=== PATIENT | male | born 1960 | race Caucasian/White ===

== ENCOUNTER 2022-09-21 00:42 | Outpatient (RCR) | payer MEDICARE, SELFPAY ==
[2022-08-29] MEDS: Normal Saline Flush 10 ML SYR IVP (08:10)
[2022-08-29 08:27] LABS: Abs Immature Grans 0.01 10^3/uL (0.0-0.06); Absolute Basophil Count 0.01 10^3/uL (0.0-0.2); Absolute Eosinophil Count 0.13 10^3/uL (0.0-0.7); Absolute Lymphocyte Count 1.46 10^3/uL (1.2-3.4); Absolute Monocyte Count 0.61 10^3/uL (0.1-0.8); Absolute Neutrophil Count 4.25 10^3/uL (1.2-6.7); Basophils % 0.2; HCT 36.8 % (40.0-50.0); Immature Grans % 0.2; Lymphocytes % 22.6; MCH 29.3 pg (27.0-33.0); MCHC 32.6 % (32.0-36.0); MCV 90 fL (80-95); MPV 10.7 fL (8.0-11.0); Monocytes % 9.4; Neutrophils % 65.6; Platelet Count 272 10^3/uL (130-400); RDW 13.7 % (11.8-14.1); RDW-SD 45.3 fL; WBC 6.47 10^3/uL (4.4-10.8)
[2022-08-29 08:43] LABS: ALT 35 U/L (16-63); AST 21 U/L (15-37); Albumin 3.3 g/dL (3.4-5.0); Alkaline Phosphatase 125 U/L (46-116); BUN 27 mg/dL (7-18); Bilirubin, Total 0.7 mg/dL (0.2-1.0); CREATININE 1.1 mg/dL (0.70-1.30); Calcium 8.5 mg/dL (8.5-10.1); Chloride 105 mmol/L (98-107); Estimated GFR 74.96 (mL/min/1.73m2); Glucose 117 mg/dL (74-106); Potassium 3.9 mmol/L (3.5-5.1); Sodium 141 mmol/L (136-145); Total Protein 7.5 g/dL (6.4-8.2)
[2022-08-31 09:59] LABS: CA 19-9 189 U/mL (<35)
[2022-09-14] MEDS: Normal Saline Flush 10 ML SYR IVP (08:45)
[2022-09-14 09:04] LABS: Absolute Basophil Count 0.01 10^3/uL (0.0-0.2); Absolute Eosinophil Count 0.27 10^3/uL (0.0-0.7); Absolute Lymphocyte Count 1.14 10^3/uL (1.2-3.4); Absolute Monocyte Count 0.45 10^3/uL (0.1-0.8); Absolute Neutrophil Count 0.56 10^3/uL (1.2-6.7); Basophils % 0.4; Eosinophils % 11.1; HCT 29.9 % (40.0-50.0); HGB 10.2 g/dL (13.5-17.5); Lymphocytes % 46.9; MCH 29.6 pg (27.0-33.0); MCHC 34.1 % (32.0-36.0); MCV 87 fL (80-95); MPV 10.2 fL (8.0-11.0); Monocytes % 18.5; Neutrophils % 23.1; Platelet Count 223 10^3/uL (130-400); RBC 3.45 10^6/uL (4.36-5.78); RDW 13.6 % (11.8-14.1); RDW-SD 41.5 fL; WBC 2.43 10^3/uL (4.4-10.8)
[2022-09-14 09:18] LABS: ALT 30 U/L (16-63); AST 20 U/L (15-37); Alkaline Phosphatase 105 U/L (46-116); Anion Gap 6.7 mmol/L (3-11); BUN 19 mg/dL (7-18); Bilirubin, Total 0.7 mg/dL (0.2-1.0); CO2 30.3 mmol/L (21.0-32.0); CREATININE 1.1 mg/dL (0.70-1.30); Calcium 8.4 mg/dL (8.5-10.1); Chloride 108 mmol/L (98-107); Estimated GFR 74.96 (mL/min/1.73m2); Glucose 129 mg/dL (74-106); Sodium 145 mmol/L (136-145); Total Protein 6.6 g/dL (6.4-8.2)
[2022-09-14 09:24] LABS: Potassium 2.9 mmol/L (3.5-5.1)
[2022-09-14 09:42] LABS: Diff Comment Agrees w/ Instrument; RBC Morphology Normal
[2022-09-17 15:42] LABS: CA 19-9 181 U/mL (<35)
[2022-09-21] MEDS: Normal Saline Flush 10 ML SYR IVP (08:07)
[2022-09-21 08:29] LABS: Abs Immature Grans 0.04 10^3/uL (0.0-0.06); Absolute Basophil Count 0.01 10^3/uL (0.0-0.2); Absolute Eosinophil Count 0.06 10^3/uL (0.0-0.7); Absolute Lymphocyte Count 1.57 10^3/uL (1.2-3.4); Absolute Monocyte Count 0.64 10^3/uL (0.1-0.8); Absolute Neutrophil Count 2.72 10^3/uL (1.2-6.7); Basophils % 0.2; Eosinophils % 1.2; HCT 32.1 % (40.0-50.0); HGB 10.5 g/dL (13.5-17.5); Immature Grans % 0.8; Lymphocytes % 31.2; MCH 29.1 pg (27.0-33.0); MCHC 32.7 % (32.0-36.0); MCV 89 fL (80-95); MPV 9.8 fL (8.0-11.0); Monocytes % 12.7; Neutrophils % 53.9; Platelet Count 278 10^3/uL (130-400); RBC 3.61 10^6/uL (4.36-5.78); RDW 13.6 % (11.8-14.1); RDW-SD 44.4 fL; WBC 5.04 10^3/uL (4.4-10.8)
[2022-09-21 08:49] LABS: ALT 31 U/L (16-63); AST 23 U/L (15-37); Alkaline Phosphatase 115 U/L (46-116); Anion Gap 6.5 mmol/L (3-11); BUN 23 mg/dL (7-18); Bilirubin, Total 0.4 mg/dL (0.2-1.0); CO2 30.5 mmol/L (21.0-32.0); CREATININE 0.9 mg/dL (0.70-1.30); Calcium 8.4 mg/dL (8.5-10.1); Chloride 104 mmol/L (98-107); Estimated GFR 95.37 (mL/min/1.73m2); Glucose 94 mg/dL (74-106); Potassium 4.1 mmol/L (3.5-5.1); Sodium 141 mmol/L (136-145); Total Protein 7.1 g/dL (6.4-8.2)
[2022-09-24 14:02] LABS: CA 19-9 246 U/mL (<35)
== END 2022-09-21 23:59 | disposition home or self-care (01) ==
LOC: INF 00:42
PROVIDERS: PCP Internal Medicine; Visit Provider Internal Medicine Hematology & Oncology
DX: C24.1 Malignant neoplasm of ampulla of Vater (principal); Z45.2 Encounter for adjustment and management of vascular access device
CPT/HCPCS: 36591; 80053; 82533; 82378; 85025; 86301

== ENCOUNTER 2022-10-19 01:03 | Outpatient (RCR) | payer MEDICARE, SELFPAY ==
[2022-10-05] MEDS: Normal Saline Flush 10 ML SYR IVP (08:29)
[2022-10-05 08:41] LABS: Abs Immature Grans 0.02 10^3/uL (0.0-0.06); Absolute Basophil Count 0.02 10^3/uL (0.0-0.2); Absolute Eosinophil Count 0.15 10^3/uL (0.0-0.7); Absolute Lymphocyte Count 1.44 10^3/uL (1.2-3.4); Absolute Monocyte Count 0.62 10^3/uL (0.1-0.8); Absolute Neutrophil Count 3.84 10^3/uL (1.2-6.7); Basophils % 0.3; Eosinophils % 2.5; HCT 34.1 % (40.0-50.0); HGB 11.3 g/dL (13.5-17.5); Immature Grans % 0.3; Lymphocytes % 23.6; MCH 29.7 pg (27.0-33.0); MCHC 33.1 % (32.0-36.0); MCV 90 fL (80-95); MPV 10.6 fL (8.0-11.0); Monocytes % 10.2; Neutrophils % 63.1; Platelet Count 271 10^3/uL (130-400); RBC 3.81 10^6/uL (4.36-5.78); RDW 14.6 % (11.8-14.1); RDW-SD 47.8 fL; WBC 6.09 10^3/uL (4.4-10.8)
[2022-10-05 09:05] LABS: ALT 43 U/L (16-63); AST 30 U/L (15-37); Albumin 3.4 g/dL (3.4-5.0); Alkaline Phosphatase 127 U/L (46-116); Anion Gap 8.9 mmol/L (3-11); BUN 23 mg/dL (7-18); Bilirubin, Total 0.7 mg/dL (0.2-1.0); CO2 27.1 mmol/L (21.0-32.0); CREATININE 1.2 mg/dL (0.70-1.30); Calcium 8.6 mg/dL (8.5-10.1); Chloride 107 mmol/L (98-107); Estimated GFR 67.53 (mL/min/1.73m2); Glucose 135 mg/dL (74-106); Sodium 143 mmol/L (136-145); Total Protein 7.3 g/dL (6.4-8.2)
[2022-10-08 12:54] LABS: CA 19-9 213 U/mL (<35)
[2022-10-19] MEDS: Normal Saline Flush 10 ML SYR IVP (08:45)
[2022-10-19 09:15] LABS: Abs Immature Grans 0.01 10^3/uL (0.0-0.06); Absolute Basophil Count 0.02 10^3/uL (0.0-0.2); Absolute Eosinophil Count 0.19 10^3/uL (0.0-0.7); Absolute Lymphocyte Count 1.39 10^3/uL (1.2-3.4); Absolute Monocyte Count 0.48 10^3/uL (0.1-0.8); Absolute Neutrophil Count 2.97 10^3/uL (1.2-6.7); Basophils % 0.4; Eosinophils % 3.8; HCT 29.8 % (40.0-50.0); HGB 9.9 g/dL (13.5-17.5); Immature Grans % 0.2; Lymphocytes % 27.5; MCH 29.6 pg (27.0-33.0); MCHC 33.2 % (32.0-36.0); MCV 89 fL (80-95); MPV 10.4 fL (8.0-11.0); Monocytes % 9.5; Neutrophils % 58.6; Platelet Count 182 10^3/uL (130-400); RBC 3.34 10^6/uL (4.36-5.78); RDW 14.5 % (11.8-14.1); RDW-SD 46.1 fL; WBC 5.06 10^3/uL (4.4-10.8)
[2022-10-19 09:24] LABS: ALT 37 U/L (16-63); AST 24 U/L (15-37); Albumin 3.2 g/dL (3.4-5.0); Alkaline Phosphatase 106 U/L (46-116); Anion Gap 7.1 mmol/L (3-11); BUN 19 mg/dL (7-18); Bilirubin, Total 0.4 mg/dL (0.2-1.0); CO2 27.9 mmol/L (21.0-32.0); CREATININE 1.1 mg/dL (0.70-1.30); Calcium 8.2 mg/dL (8.5-10.1); Chloride 107 mmol/L (98-107); Estimated GFR 74.96 (mL/min/1.73m2); Glucose 85 mg/dL (74-106); Potassium 4.2 mmol/L (3.5-5.1); Sodium 142 mmol/L (136-145); Total Protein 6.9 g/dL (6.4-8.2)
[2022-10-22 17:29] LABS: CA 19-9 173 U/mL (<35)
== END 2022-10-22 23:59 | disposition home or self-care (01) ==
LOC: INF 01:03
PROVIDERS: PCP Internal Medicine; Visit Provider Internal Medicine Hematology & Oncology
DX: C24.1 Malignant neoplasm of ampulla of Vater (principal); Z45.2 Encounter for adjustment and management of vascular access device
CPT/HCPCS: 36591; 80053; 85025; 86301

== ENCOUNTER 2022-11-20 08:15 | Outpatient (RCR) | payer MEDICARE, SELFPAY ==
[2022-11-01] MEDS: Normal Saline Flush 10 ML SYR IVP (08:05)
[2022-11-01 08:58] LABS: ALT 29 U/L (16-63); AST 23 U/L (15-37); Alkaline Phosphatase 122 U/L (46-116); BUN 15 mg/dL (7-18); Bilirubin, Total 0.5 mg/dL (0.2-1.0); CREATININE 1.2 mg/dL (0.70-1.30); Calcium 8.1 mg/dL (8.5-10.1); Chloride 108 mmol/L (98-107); Estimated GFR 67.53 (mL/min/1.73m2); Glucose 104 mg/dL (74-106); Sodium 144 mmol/L (136-145); Total Protein 6.6 g/dL (6.4-8.2)
[2022-11-01 09:02] LABS: Absolute Basophil Count 0.01 10^3/uL (0.0-0.2); Absolute Eosinophil Count 0.14 10^3/uL (0.0-0.7); Absolute Lymphocyte Count 1.25 10^3/uL (1.2-3.4); Absolute Monocyte Count 0.56 10^3/uL (0.1-0.8); Absolute Neutrophil Count 2.48 10^3/uL (1.2-6.7); Basophils % 0.2; Eosinophils % 3.1; HCT 28.7 % (40.0-50.0); HGB 9.6 g/dL (13.5-17.5); Lymphocytes % 28.1; MCH 29.6 pg (27.0-33.0); MCHC 33.4 % (32.0-36.0); MCV 89 fL (80-95); MPV 10.1 fL (8.0-11.0); Monocytes % 12.6; Neutrophils % 55.8; Platelet Count 161 10^3/uL (130-400); RBC 3.24 10^6/uL (4.36-5.78); RDW-SD 47.3 fL; WBC 4.45 10^3/uL (4.4-10.8)
[2022-11-01 09:03] LABS: Abs Immature Grans 0.01 10^3/uL (0.0-0.06); Immature Grans % 0.2
[2022-11-01 09:32] LABS: Reticulocyte 2.2 % (0.5-2.4)
[2022-11-01 09:49] LABS: Iron 68 ug/dL (65-175); Total Iron Binding Capacity 296 ug/dL (250-450); Transferrin Sat 23 % (20-55)
[2022-11-01 10:17] LABS: Ferritin 90 ng/mL (26-388); Vitamin B12 357 pg/mL (193-986)
[2022-11-01 10:19] LABS: Folate > 20.0 ng/mL (8.6-20.0)
[2022-11-02 09:54] LABS: CA 19-9 128 U/mL (<35)
[2022-11-16 08:21] LABS: Abs Immature Grans 0.01 10^3/uL (0.0-0.06); Absolute Basophil Count 0.02 10^3/uL (0.0-0.2); Absolute Eosinophil Count 0.08 10^3/uL (0.0-0.7); Absolute Lymphocyte Count 1.74 10^3/uL (1.2-3.4); Absolute Monocyte Count 1.04 10^3/uL (0.1-0.8); Basophils % 0.4; Eosinophils % 1.7; HCT 28.1 % (40.0-50.0); HGB 9.5 g/dL (13.5-17.5); Immature Grans % 0.2; Lymphocytes % 37.1; MCH 30.4 pg (27.0-33.0); MCHC 33.8 % (32.0-36.0); MCV 90 fL (80-95); MPV 10.7 fL (8.0-11.0); Monocytes % 22.2; Neutrophils % 38.4; Platelet Count 187 10^3/uL (130-400); RBC 3.12 10^6/uL (4.36-5.78); RDW 16.5 % (11.8-14.1); RDW-SD 52.7 fL; WBC 4.69 10^3/uL (4.4-10.8)
[2022-11-16] MEDS: Normal Saline Flush 10 ML SYR IVP (08:24)
[2022-11-16 08:44] LABS: ALT 26 U/L (16-63); AST 25 U/L (15-37); Albumin 2.8 g/dL (3.4-5.0); Alkaline Phosphatase 134 U/L (46-116); Anion Gap 5.6 mmol/L (3-11); BUN 11 mg/dL (7-18); Bilirubin, Total 0.7 mg/dL (0.2-1.0); CO2 29.4 mmol/L (21.0-32.0); Calcium 7.9 mg/dL (8.5-10.1); Chloride 105 mmol/L (98-107); Estimated GFR 84.05 (mL/min/1.73m2); Glucose 82 mg/dL (74-106); Potassium 3.6 mmol/L (3.5-5.1); Sodium 140 mmol/L (136-145); Total Protein 6.5 g/dL (6.4-8.2)
[2022-11-19 12:07] LABS: CA 19-9 95 U/mL (<35)
[2022-11-20] MEDS: Normal Saline Flush 10 ML SYR IVP (08:36)
[2022-11-20 09:09] LABS: Abs Immature Grans 0.01 10^3/uL (0.0-0.06); Absolute Basophil Count 0.01 10^3/uL (0.0-0.2); Absolute Eosinophil Count 0.07 10^3/uL (0.0-0.7); Absolute Lymphocyte Count 1.36 10^3/uL (1.2-3.4); Absolute Monocyte Count 0.84 10^3/uL (0.1-0.8); Basophils % 0.2; Eosinophils % 1.7; HCT 29.4 % (40.0-50.0); HGB 9.7 g/dL (13.5-17.5); Immature Grans % 0.2; Lymphocytes % 33.7; MCV 91 fL (80-95); MPV 10.6 fL (8.0-11.0); Monocytes % 20.8; Neutrophils % 43.4; Platelet Count 258 10^3/uL (130-400); RBC 3.23 10^6/uL (4.36-5.78); RDW-SD 53.9 fL; WBC 4.03 10^3/uL (4.4-10.8)
[2022-11-20 09:11] LABS: Absolute Neutrophil Count 1.75 10^3/uL (1.2-6.7)
[2022-11-20 09:29] LABS: ALT 35 U/L (16-63); AST 34 U/L (15-37); Albumin 3.1 g/dL (3.4-5.0); Alkaline Phosphatase 165 U/L (46-116); Anion Gap 7.1 mmol/L (3-11); BUN 11 mg/dL (7-18); Bilirubin, Total 0.6 mg/dL (0.2-1.0); CO2 29.9 mmol/L (21.0-32.0); Calcium 8.5 mg/dL (8.5-10.1); Chloride 103 mmol/L (98-107); Estimated GFR 84.05 (mL/min/1.73m2); Glucose 92 mg/dL (74-106); Sodium 140 mmol/L (136-145); Total Protein 7.2 g/dL (6.4-8.2)
[2022-11-21 09:20] LABS: CA 19-9 99 U/mL (<35)
== END 2022-11-22 23:59 | disposition home or self-care (01) ==
LOC: INF 08:15
PROVIDERS: PCP Internal Medicine; Visit Provider Internal Medicine Hematology & Oncology
DX: C24.1 Malignant neoplasm of ampulla of Vater (principal); D50.9 Iron deficiency anemia, unspecified; Z45.2 Encounter for adjustment and management of vascular access device
CPT/HCPCS: 36591; 80053; 82607; 82728; 82746; 83540; 83550; 85025; 85045; 86301

== ENCOUNTER 2022-12-21 02:52 | Outpatient (RCR) | payer MEDICARE, SELFPAY ==
[2022-12-07] MEDS: Normal Saline Flush 10 ML SYR IVP (08:02)
[2022-12-07 08:38] LABS: Abs Immature Grans 0.01 10^3/uL (0.0-0.06); Absolute Basophil Count 0.01 10^3/uL (0.0-0.2); Absolute Eosinophil Count 0.09 10^3/uL (0.0-0.7); Absolute Lymphocyte Count 1.03 10^3/uL (1.2-3.4); Absolute Monocyte Count 0.67 10^3/uL (0.1-0.8); Absolute Neutrophil Count 0.99 10^3/uL (1.2-6.7); Basophils % 0.4; Eosinophils % 3.2; HCT 27.2 % (40.0-50.0); HGB 8.9 g/dL (13.5-17.5); Immature Grans % 0.4; Lymphocytes % 36.8; MCH 29.9 pg (27.0-33.0); MCHC 32.7 % (32.0-36.0); MCV 91 fL (80-95); MPV 11.1 fL (8.0-11.0); Monocytes % 23.9; Neutrophils % 35.3; Platelet Count 243 10^3/uL (130-400); RBC 2.98 10^6/uL (4.36-5.78); RDW 15.3 % (11.8-14.1); RDW-SD 50.1 fL
[2022-12-07 09:01] LABS: ALT 32 U/L (16-63); AST 33 U/L (15-37); Albumin 2.9 g/dL (3.4-5.0); Alkaline Phosphatase 208 U/L (46-116); Anion Gap 5.4 mmol/L (3-11); BUN 12 mg/dL (7-18); Bilirubin, Total 0.4 mg/dL (0.2-1.0); CO2 29.6 mmol/L (21.0-32.0); Calcium 8.8 mg/dL (8.5-10.1); Chloride 106 mmol/L (98-107); Estimated GFR 84.05 (mL/min/1.73m2); Glucose 92 mg/dL (74-106); Potassium 3.9 mmol/L (3.5-5.1); Sodium 141 mmol/L (136-145); Total Protein 7.2 g/dL (6.4-8.2)
[2022-12-10 11:39] LABS: CA 19-9 56 U/mL (<35)
[2022-12-11] MEDS: Normal Saline Flush 10 ML SYR IVP (07:44)
[2022-12-11 08:18] LABS: ALT 29 U/L (16-63); AST 33 U/L (15-37); Alkaline Phosphatase 200 U/L (46-116); Anion Gap 7.1 mmol/L (3-11); BUN 12 mg/dL (7-18); Bilirubin, Total 0.3 mg/dL (0.2-1.0); CO2 27.9 mmol/L (21.0-32.0); CREATININE 1.1 mg/dL (0.70-1.30); Chloride 105 mmol/L (98-107); Estimated GFR 74.96 (mL/min/1.73m2); Glucose 138 mg/dL (74-106); Potassium 3.7 mmol/L (3.5-5.1); Sodium 140 mmol/L (136-145); Total Protein 7.3 g/dL (6.4-8.2)
[2022-12-11 08:30] LABS: Abs Immature Grans 0.05 10^3/uL (0.0-0.06); Absolute Basophil Count 0.01 10^3/uL (0.0-0.2); Absolute Lymphocyte Count 1.89 10^3/uL (1.2-3.4); Absolute Monocyte Count 0.75 10^3/uL (0.1-0.8); Absolute Neutrophil Count 1.38 10^3/uL (1.2-6.7); Basophils % 0.2; Eosinophils % 2.4; HCT 29.1 % (40.0-50.0); HGB 9.5 g/dL (13.5-17.5); Immature Grans % 1.2; Lymphocytes % 45.2; MCH 30.1 pg (27.0-33.0); MCHC 32.6 % (32.0-36.0); MCV 92 fL (80-95); MPV 10.6 fL (8.0-11.0); Monocytes % 17.9; Neutrophils % 33.1; Platelet Count 356 10^3/uL (130-400); RBC 3.16 10^6/uL (4.36-5.78); RDW 15.3 % (11.8-14.1); RDW-SD 51.1 fL; WBC 4.18 10^3/uL (4.4-10.8)
== END 2022-12-22 23:59 | disposition home or self-care (01) ==
LOC: INF 02:52
PROVIDERS: PCP Internal Medicine; Visit Provider Internal Medicine Hematology & Oncology
DX: C24.1 Malignant neoplasm of ampulla of Vater (principal); Z45.2 Encounter for adjustment and management of vascular access device
CPT/HCPCS: 36591; 80053; 85025; 86301

== ENCOUNTER 2023-02-06 08:28 | Outpatient (RCR) | payer MEDICARE, SELFPAY ==
[2023-02-06] MEDS: Normal Saline Flush 10 ML SYR IVP (08:37)
[2023-02-06 09:01] LABS: Abs Immature Grans 0.04 10^3/uL (0.0-0.06); Absolute Basophil Count 0.02 10^3/uL (0.0-0.2); Absolute Eosinophil Count 0.07 10^3/uL (0.0-0.7); Absolute Lymphocyte Count 0.85 10^3/uL (1.2-3.4); Absolute Monocyte Count 0.86 10^3/uL (0.1-0.8); Absolute Neutrophil Count 4.15 10^3/uL (1.2-6.7); Basophils % 0.3; Eosinophils % 1.2; HCT 33.1 % (40.0-50.0); HGB 11.1 g/dL (13.5-17.5); Immature Grans % 0.7; Lymphocytes % 14.2; MCH 31.2 pg (27.0-33.0); MCHC 33.5 % (32.0-36.0); MCV 93 fL (80-95); MPV 10.7 fL (8.0-11.0); Monocytes % 14.4; Neutrophils % 69.2; Platelet Count 191 10^3/uL (130-400); RBC 3.56 10^6/uL (4.36-5.78); RDW 14.2 % (11.8-14.1); RDW-SD 48.3 fL; WBC 5.99 10^3/uL (4.4-10.8)
[2023-02-06 09:20] LABS: ALT 87 U/L (16-63); AST 57 U/L (15-37); Albumin 3.1 g/dL (3.4-5.0); Alkaline Phosphatase 254 U/L (46-116); Anion Gap 6.9 mmol/L (3-11); BUN 14 mg/dL (7-18); Bilirubin, Total 0.9 mg/dL (0.2-1.0); CO2 28.1 mmol/L (21.0-32.0); CREATININE 1.1 mg/dL (0.70-1.30); Chloride 105 mmol/L (98-107); Estimated GFR 74.96 (mL/min/1.73m2); Glucose 105 mg/dL (74-106); Potassium 3.7 mmol/L (3.5-5.1); Sodium 140 mmol/L (136-145); Total Protein 7.5 g/dL (6.4-8.2)
[2023-02-07 11:47] LABS: CA 19-9 72 U/mL (<35)
== END 2023-02-21 23:59 | disposition home or self-care (01) ==
LOC: INF 08:28
PROVIDERS: PCP Internal Medicine; Visit Provider Internal Medicine Hematology & Oncology
DX: C24.1 Malignant neoplasm of ampulla of Vater (principal); Z45.2 Encounter for adjustment and management of vascular access device
CPT/HCPCS: 36591; 80053; 85025; 86301

== ENCOUNTER 2023-09-13 01:08 | Outpatient (RCR) | payer MEDICARE, SELFPAY ==
[2023-09-13] MEDS: Normal Saline Flush 10 ML SYR IVP (10:16)
[2023-09-13 10:31] LABS: Abs Immature Grans 0.02 10^3/uL (0.0-0.06); Absolute Basophil Count 0.03 10^3/uL (0.0-0.2); Absolute Eosinophil Count 0.14 10^3/uL (0.0-0.7); Absolute Lymphocyte Count 1.44 10^3/uL (1.2-3.4); Absolute Monocyte Count 0.58 10^3/uL (0.1-0.8); Absolute Neutrophil Count 5.19 10^3/uL (1.2-6.7); Basophils % 0.4 %; Eosinophils % 1.9 %; HCT 32.5 % (40.0-50.0); HGB 11.1 g/dL (13.5-17.5); Immature Grans % 0.3 %; Lymphocytes % 19.5 %; MCH 31.4 pg (27.0-33.0); MCHC 34.2 % (32.0-36.0); MCV 92 fL (80-95); MPV 10.6 fL (8.0-11.0); Monocytes % 7.8 %; Neutrophils % 70.1 %; Platelet Count 193 10^3/uL (130-400); RBC 3.54 10^6/uL (4.36-5.78); RDW 13.2 % (11.8-14.1); RDW-SD 45.1 fL
[2023-09-13 10:46] LABS: ALT 47 U/L (16-63); AST 37 U/L (15-37); Albumin 3.3 g/dL (3.4-5.0); Alkaline Phosphatase 153 U/L (46-116); Anion Gap 8.1 mmol/L (3-11); BUN 23 mg/dL (7-18); Bilirubin, Total 1.02 mg/dL (0.2-1.0); CO2 24.9 mmol/L (21.0-32.0); CREATININE 1.1 mg/dL (0.70-1.30); Calcium 8.3 mg/dL (8.5-10.1); Chloride 110 mmol/L (98-107); Glucose 81 mg/dL (74-106); Potassium 4.3 mmol/L (3.5-5.1); Sodium 143 mmol/L (136-145); Total Protein 7.5 g/dL (6.4-8.2)
[2023-09-13 11:46] LABS: TSH 3.67 uIU/Ml (0.36-3.74)
[2023-09-13 15:03] LABS: FREE T4 0.87 ng/dL (0.76-1.46)
[2023-09-13 21:56] LABS: CA 19-9 970 U/mL (<35)
== END 2023-09-22 23:59 | disposition home or self-care (01) ==
LOC: INF 01:08
PROVIDERS: Nurse Practitioner Family; PCP Internal Medicine; Visit Provider Internal Medicine Hematology & Oncology
DX: C24.1 Malignant neoplasm of ampulla of Vater (principal); R53.83 Other fatigue; Z45.2 Encounter for adjustment and management of vascular access device
CPT/HCPCS: 36591; 80053; 82310; 84439; 84443; 85025; 86301

== ENCOUNTER 2023-11-08 01:21 | Outpatient (RCR) | payer MEDICARE, SELFPAY ==
[2023-11-01] MEDS: Normal Saline Flush 10 ML SYR IVP (08:16)
[2023-11-01 09:31] LABS: Abs Immature Grans 0.01 10^3/uL (0.0-0.06); Absolute Basophil Count 0.03 10^3/uL (0.0-0.2); Absolute Eosinophil Count 0.36 10^3/uL (0.0-0.7); Absolute Lymphocyte Count 1.08 10^3/uL (1.2-3.4); Absolute Monocyte Count 0.52 10^3/uL (0.1-0.8); Basophils % 0.5 %; HCT 31.6 % (40.0-50.0); HGB 10.6 g/dL (13.5-17.5); Immature Grans % 0.2 %; MCH 31.6 pg (27.0-33.0); MCHC 33.5 % (32.0-36.0); MCV 94 fL (80-95); MPV 11.8 fL (8.0-11.0); Monocytes % 8.7 %; Neutrophils % 66.6 %; Platelet Count 194 10^3/uL (130-400); RBC 3.35 10^6/uL (4.36-5.78); RDW 12.7 % (11.8-14.1)
[2023-11-01 10:04] LABS: ALT 42 U/L (16-63); AST 41 U/L (15-37); Albumin 3.1 g/dL (3.4-5.0); Alkaline Phosphatase 152 U/L (46-116); Anion Gap 5.8 mmol/L (3-11); BUN 11 mg/dL (7-18); Bilirubin, Total 0.99 mg/dL (0.2-1.0); CO2 28.2 mmol/L (21.0-32.0); Calcium 8.3 mg/dL (8.5-10.1); Chloride 108 mmol/L (98-107); Estimated GFR 83.52 (mL/min/1.73m2); Glucose 99 mg/dL (74-106); Potassium 3.8 mmol/L (3.5-5.1); Sodium 142 mmol/L (136-145); Total Protein 7.3 g/dL (6.4-8.2)
[2023-11-01 11:29] LABS: Magnesium 1.9 mg/dL (1.8-2.4)
[2023-11-04 12:06] LABS: CA 19-9 1977 U/mL (<35)
[2023-11-08] MEDS: Normal Saline Flush 10 ML SYR IVP (10:00)
[2023-11-08 10:21] LABS: Absolute Basophil Count 0.02 10^3/uL (0.0-0.2); Absolute Eosinophil Count 0.09 10^3/uL (0.0-0.7); Absolute Lymphocyte Count 0.94 10^3/uL (1.2-3.4); Absolute Monocyte Count 0.13 10^3/uL (0.1-0.8); Absolute Neutrophil Count 1.56 10^3/uL (1.2-6.7); Basophils % 0.7 %; Eosinophils % 3.3 %; HCT 30.5 % (40.0-50.0); HGB 10.3 g/dL (13.5-17.5); Lymphocytes % 34.3 %; MCH 31.4 pg (27.0-33.0); MCHC 33.8 % (32.0-36.0); MCV 93 fL (80-95); MPV 10.4 fL (8.0-11.0); Monocytes % 4.7 %; Platelet Count 132 10^3/uL (130-400); RBC 3.28 10^6/uL (4.36-5.78); RDW 11.8 % (11.8-14.1); RDW-SD 40.3 fL; WBC 2.74 10^3/uL (4.4-10.8)
[2023-11-08 10:46] LABS: ALT 50 U/L (16-63); AST 33 U/L (15-37); Alkaline Phosphatase 157 U/L (46-116); Anion Gap 6.5 mmol/L (3-11); BUN 18 mg/dL (7-18); Bilirubin, Total 0.63 mg/dL (0.2-1.0); CO2 31.5 mmol/L (21.0-32.0); CREATININE 1.2 mg/dL (0.70-1.30); Calcium 8.7 mg/dL (8.5-10.1); Chloride 103 mmol/L (98-107); Estimated GFR 67.11 (mL/min/1.73m2); Glucose 110 mg/dL (74-106); Potassium 3.9 mmol/L (3.5-5.1); Sodium 141 mmol/L (136-145); Total Protein 7.4 g/dL (6.4-8.2)
[2023-11-08 11:57] LABS: Magnesium 1.9 mg/dL (1.8-2.4)
[2023-11-09 00:54] LABS: CA 19-9 2741 U/mL (<35)
== END 2023-11-23 23:59 | disposition home or self-care (01) ==
LOC: INF 01:21
PROVIDERS: Nurse Practitioner Family; PCP Internal Medicine; Visit Provider Internal Medicine Hematology & Oncology
DX: C24.1 Malignant neoplasm of ampulla of Vater (principal); Z45.2 Encounter for adjustment and management of vascular access device
CPT/HCPCS: 36591; 80053; 83735; 85025; 86301

== ENCOUNTER 2023-12-13 07:05 | Outpatient (RCR) | payer MEDICARE, SELFPAY ==
[2023-12-13 07:58] LABS: Abs Immature Grans 0.01 10^3/uL (0.0-0.06); Absolute Basophil Count 0.04 10^3/uL (0.0-0.2); Absolute Eosinophil Count 0.02 10^3/uL (0.0-0.7); Absolute Lymphocyte Count 1.08 10^3/uL (1.2-3.4); Absolute Monocyte Count 0.23 10^3/uL (0.1-0.8); Absolute Neutrophil Count 2.03 10^3/uL (1.2-6.7); Basophils % 1.2 %; Eosinophils % 0.6 %; HCT 25.2 % (40.0-50.0); HGB 8.6 g/dL (13.5-17.5); Immature Grans % 0.3 %; Lymphocytes % 31.7 %; MCH 31.9 pg (27.0-33.0); MCHC 34.1 % (32.0-36.0); MCV 93 fL (80-95); MPV 10.3 fL (8.0-11.0); Monocytes % 6.7 %; Neutrophils % 59.5 %; Platelet Count 145 10^3/uL (130-400); RDW 13.2 % (11.8-14.1); RDW-SD 44.4 fL; WBC 3.41 10^3/uL (4.4-10.8)
[2023-12-13 08:11] LABS: Diff Comment Diff Reviewed; Hypochromasia 1+
[2023-12-13 08:22] LABS: ALT 29 U/L (16-63); AST 27 U/L (15-37); Albumin 2.7 g/dL (3.4-5.0); Alkaline Phosphatase 118 U/L (46-116); BUN 14 mg/dL (7-18); Bilirubin, Total 0.42 mg/dL (0.2-1.0); CREATININE 1.2 mg/dL (0.70-1.30); Calcium 8.6 mg/dL (8.5-10.1); Chloride 103 mmol/L (98-107); Estimated GFR 67.11 (mL/min/1.73m2); Glucose 123 mg/dL (74-106); Magnesium 1.6 mg/dL (1.8-2.4); Potassium 3.8 mmol/L (3.5-5.1); Sodium 140 mmol/L (136-145); Total Protein 7.2 g/dL (6.4-8.2)
[2023-12-13 10:54] LABS: Reticulocyte 0.2 % (0.5-2.4)
[2023-12-13 10:58] LABS: Iron 47 ug/dL (65-175); Total Iron Binding Capacity 290 ug/dL (250-450); Transferrin Sat 16 % (20-55)
[2023-12-13 11:24] LABS: Ferritin 428 ng/mL (26-388); Vitamin B12 1434 pg/mL (193-986)
[2023-12-13 11:31] LABS: Folate > 20.0 ng/mL (8.6-20.0)
[2023-12-13 21:43] LABS: CA 19-9 1790 U/mL (<35)
== END 2023-12-23 23:59 | disposition home or self-care (01) ==
LOC: INF 07:05
PROVIDERS: PCP Internal Medicine; Visit Provider Internal Medicine Hematology & Oncology
DX: C24.1 Malignant neoplasm of ampulla of Vater (principal); D64.9 Anemia, unspecified
CPT/HCPCS: 36591; 80053; 82607; 82728; 82746; 83540; 83550; 83735; 85025; 85045; 86301

== ENCOUNTER 2024-05-14 08:37 | Outpatient (RCR) | payer MEDICARE, SELFPAY ==
[2024-05-14 09:15] LABS: Abs Immature Grans 0.01 10^3/uL (0.0-0.06); Absolute Basophil Count 0.01 10^3/uL (0.0-0.2); Absolute Lymphocyte Count 1.53 10^3/uL (1.2-3.4); Absolute Monocyte Count 0.73 10^3/uL (0.1-0.8); Absolute Neutrophil Count 2.24 10^3/uL (1.2-6.7); Basophils % 0.2 %; Eosinophils % 2.2 %; HCT 29.9 % (40.0-50.0); Immature Grans % 0.2 %; Lymphocytes % 33.1 %; MCH 32.4 pg (27.0-33.0); MCHC 33.4 % (32.0-36.0); MCV 97 fL (80-95); MPV 10.3 fL (8.0-11.0); Monocytes % 15.8 %; Neutrophils % 48.5 %; Platelet Count 213 10^3/uL (130-400); RBC 3.09 10^6/uL (4.36-5.78); RDW 15.9 % (11.8-14.1); RDW-SD 56.1 fL; WBC 4.62 10^3/uL (4.4-10.8)
[2024-05-14] MEDS: Normal Saline Flush 10 ML SYR IVP (09:15)
[2024-05-14 09:53] LABS: ALT 30 U/L (16-63); AST 28 U/L (15-37); Albumin 3.3 g/dL (3.4-5.0); Alkaline Phosphatase 109 U/L (46-116); Anion Gap 5.5 mmol/L (3-11); BUN 30 mg/dL (7-18); CO2 29.5 mmol/L (21.0-32.0); CREATININE 1.6 mg/dL (0.70-1.30); Calcium 8.8 mg/dL (8.5-10.1); Chloride 107 mmol/L (98-107); Estimated GFR 47.23 (mL/min/1.73m2); Glucose 99 mg/dL (74-106); Potassium 4.8 mmol/L (3.5-5.1); Sodium 142 mmol/L (136-145); Total Protein 7.5 g/dL (6.4-8.2)
[2024-05-15 11:37] LABS: CA 19-9 1897 U/mL (<35)
== END 2024-05-22 23:59 | disposition home or self-care (01) ==
LOC: INF 08:37
PROVIDERS: PCP Internal Medicine; Visit Provider Internal Medicine Hematology & Oncology
DX: C24.1 Malignant neoplasm of ampulla of Vater (principal)
CPT/HCPCS: 36591; 80053; 83735; 85025; 86301

== ENCOUNTER 2024-06-18 02:25 | Outpatient (RCR) | payer MEDICARE, SELFPAY ==
[2024-05-28 10:26] LABS: Abs Immature Grans 0.01 10^3/uL (0.0-0.06); Absolute Basophil Count 0.02 10^3/uL (0.0-0.2); Absolute Eosinophil Count 0.11 10^3/uL (0.0-0.7); Absolute Lymphocyte Count 1.58 10^3/uL (1.2-3.4); Absolute Monocyte Count 0.59 10^3/uL (0.1-0.8); Basophils % 0.4 %; Eosinophils % 2.1 %; HCT 28.6 % (40.0-50.0); HGB 9.8 g/dL (13.5-17.5); Immature Grans % 0.2 %; Lymphocytes % 29.8 %; MCH 32.8 pg (27.0-33.0); MCHC 34.3 % (32.0-36.0); MCV 96 fL (80-95); MPV 11.7 fL (8.0-11.0); Monocytes % 11.1 %; Neutrophils % 56.4 %; Platelet Count 153 10^3/uL (130-400); RBC 2.99 10^6/uL (4.36-5.78); RDW 15.7 % (11.8-14.1); RDW-SD 55.1 fL; WBC 5.31 10^3/uL (4.4-10.8)
[2024-05-28] MEDS: Normal Saline Flush 10 ML SYR IVP (10:28)
[2024-05-28 10:42] LABS: ALT 40 U/L (16-63); AST 33 U/L (15-37); Albumin 3.2 g/dL (3.4-5.0); Alkaline Phosphatase 120 U/L (46-116); Anion Gap 5.6 mmol/L (3-11); BUN 26 mg/dL (7-18); Bilirubin, Total 0.58 mg/dL (0.2-1.0); CO2 30.4 mmol/L (21.0-32.0); CREATININE 1.3 mg/dL (0.70-1.30); Calcium 8.8 mg/dL (8.5-10.1); Chloride 109 mmol/L (98-107); Estimated GFR 60.59 (mL/min/1.73m2); Glucose 94 mg/dL (74-106); Sodium 145 mmol/L (136-145); Total Protein 7.6 g/dL (6.4-8.2)
[2024-05-29 12:25] LABS: CA 19-9 2496 U/mL (<35)
[2024-06-18 09:45] LABS: Abs Immature Grans 0.02 10^3/uL (0.0-0.06); Absolute Basophil Count 0.01 10^3/uL (0.0-0.2); Absolute Eosinophil Count 0.09 10^3/uL (0.0-0.7); Absolute Lymphocyte Count 1.37 10^3/uL (1.2-3.4); Absolute Monocyte Count 0.62 10^3/uL (0.1-0.8); Absolute Neutrophil Count 1.02 10^3/uL (1.2-6.7); Basophils % 0.3 %; Eosinophils % 2.9 %; HCT 26.8 % (40.0-50.0); Immature Grans % 0.6 %; Lymphocytes % 43.8 %; MCHC 33.6 % (32.0-36.0); MCV 98 fL (80-95); MPV 11.4 fL (8.0-11.0); Monocytes % 19.8 %; Neutrophils % 32.6 %; Platelet Count 158 10^3/uL (130-400); RBC 2.73 10^6/uL (4.36-5.78); RDW 15.7 % (11.8-14.1); RDW-SD 55.8 fL; WBC 3.13 10^3/uL (4.4-10.8)
[2024-06-18 10:05] LABS: ALT 27 U/L (16-63); AST 26 U/L (15-37); Albumin 3.2 g/dL (3.4-5.0); Alkaline Phosphatase 156 U/L (46-116); Anion Gap 6.2 mmol/L (3-11); BUN 16 mg/dL (7-18); Bilirubin, Total 0.3 mg/dL (0.2-1.0); CO2 29.8 mmol/L (21.0-32.0); CREATININE 1.3 mg/dL (0.70-1.30); Calcium 8.7 mg/dL (8.5-10.1); Chloride 108 mmol/L (98-107); Estimated GFR 60.59 (mL/min/1.73m2); Glucose 94 mg/dL (74-106); Magnesium 1.9 mg/dL; Potassium 4.4 mmol/L (3.5-5.1); Sodium 144 mmol/L (136-145); Total Protein 7.3 g/dL (6.4-8.2)
[2024-06-18] MEDS: Normal Saline Flush 10 ML SYR IVP (10:05)
[2024-06-19 13:41] LABS: CA 19-9 2896 U/mL (<35)
== END 2024-06-22 23:59 | disposition home or self-care (01) ==
LOC: INF 02:25
PROVIDERS: PCP Internal Medicine; Visit Provider Internal Medicine Hematology & Oncology
DX: C24.1 Malignant neoplasm of ampulla of Vater (principal)
CPT/HCPCS: 36591; 80053; 83735; 85025; 86301

== ENCOUNTER 2024-07-03 00:13 | Outpatient (CLI) | payer MEDICARE, SELFPAY ==
--- NOTE | 2024-07-03 | DI.CT_ITS ---
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 TECHNIQUE: Imaging Protocol: Axial computed tomography images with coronal and sagittal reformatted images were created and reviewed. Computer aided detection (CAD) was utilized. CONTRAST MATERIAL: Intravenous: Omnipaque 350 Contrast volume:100 ml Oral: yes / COMPARISON: CT CT CHEST/ABD/PEL W from 04/23/2024 FINDINGS: CHEST: Pulmonary parenchyma: No consolidation. Stable somewhat triangular density in the right middle lobe w hich could represent scarring. Interval increase in size of previously noted nodule at the periphery of the right lower lobe now measuring 5 millimeters compared to 3 on the prior exam. Tracheobronchial tree: No bronchiectasis. No mucous plugging.No bronchial wall thickening. Pleura: No effusion or pneumothorax. Mediastinum: Within normal limits. Pulmonary arteries: No visible emboli. Cardiovascular: Normal heart size. Coronary artery calcifications. No pericardial effusion. Thoraci c aorta non-dilated. Bones: Unremarkable for age. No lytic or blastic lesions.No compression fractures. Soft tissues: Port over right upper chest. ABDOMEN and PELVIS: Liver: Normal hepatic steatosis. Lesion in posterior right lobe of the liver has increased in size, measuring 2.7 cm and is suspicious for a metastatic lesion. No additional liver lesions are identifi ed. Gallbladder and biliary tract: Biliary air. Status post cholecystectomy. Multiple surgical clips. Bilioenterostomy again noted. No biliary dilatation.. Pancreas: Resection of pancreatic head. The tail is somewhat atrophic. Stent in place. No ductal di latation. No recurrence mass. Spleen: Normal. Kidneys: Normal size, contour and axis. No radiodense stones. No obstructive uropathy. Stable right renal cyst. No suspicious masses seen. Adrenal glands: No masses seen. Aorta: Abdominal portion non-dilated. Lymph nodes: Within normal limits. Soft tissues: Midline surgical scar. Small focal hernia. Bowel is nonobstructed. Bladder: Unremarkable. Bowel: No obstruction or bowel wall thickening. Sigmoid diverticulosis. Peritoneal cavity: Multiple small mesenteric lymph nodes are now visible, increasing in prominence fr om the previous exam. There is a more focal density to the right of midline at the level of the right iliac crest in the mesentery measuring in roughly 15 millimeters, also new. No ascites. No focal c ollection. No free air. Bones: Degenerative changes in the spine. No compression fractures. No visible lytic or blastic lesio ns. In L5 spondylolysis and mild L5-S1 spondylolisthesis is again noted. Reproductive organs: Unremarkable for age. IMPRESSION: Chest: Stable right middle lobe opacity. Increase in size of right posterior lower lobe nodule now measuring 5 millimeters. Abdomen pelvis: Increasing size of liver metastasis. Small mesenteric lymph nodes now visible as well as new mesenteric areas of nodularity. RADIATION DOSE DELIVERED: 860.04mGy.cm Total DLP DATA REPOSITORY: All CT scans at this facility are submitted to the National Radiology Data Registry (NRDR) Dose Index Registry (DIR) with the [employer] (ACR). RADIATION OPTIMIZATION: All CT scans at this facility use at least one of these dose optimization te chniques: automated exposure control; mA and/or kV adjustment per patient size (includes targeted exa ms where dose is matched to clinical indication); or iterative reconstruction.
[2024-07-03] MEDS: Barium Sulfate 2% W/V-Berry Smoothie 450 ML BTL PO ×2 (09:32→09:35)
[2024-07-03] MEDS: Normal Saline - Diluent 50 ML VIAL IJ (09:50)
[2024-07-03] MEDS: Omnipaque 350 MG/ML 100 ML BTL IJ (09:51)
== END 2024-07-03 00:33 ==
LOC: DI 00:13
PROVIDERS: PCP Internal Medicine; Visit Provider Internal Medicine Hematology & Oncology
DX: C24.1 Malignant neoplasm of ampulla of Vater (principal)
CPT/HCPCS: 74177; 71260; J3490

== ENCOUNTER 2024-07-09 00:53 | Outpatient (RCR) | payer MEDICARE, SELFPAY ==
[2024-07-02] MEDS: Normal Saline Flush 10 ML SYR IVP (07:21)
[2024-07-02 08:01] LABS: Abs Immature Grans 0.01 10^3/uL (0.0-0.06); Absolute Basophil Count 0.01 10^3/uL (0.0-0.2); Absolute Eosinophil Count 0.07 10^3/uL (0.0-0.7); Absolute Lymphocyte Count 1.57 10^3/uL (1.2-3.4); Absolute Monocyte Count 0.47 10^3/uL (0.1-0.8); Absolute Neutrophil Count 3.14 10^3/uL (1.2-6.7); Basophils % 0.2 %; Eosinophils % 1.3 %; HCT 26.5 % (40.0-50.0); HGB 9.2 g/dL (13.5-17.5); Immature Grans % 0.2 %; Lymphocytes % 29.8 %; MCH 34.1 pg (27.0-33.0); MCHC 34.7 % (32.0-36.0); MCV 98 fL (80-95); Monocytes % 8.9 %; Neutrophils % 59.6 %; Platelet Count 158 10^3/uL (130-400); RDW 14.9 % (11.8-14.1); RDW-SD 53.7 fL; WBC 5.27 10^3/uL (4.4-10.8)
[2024-07-02 08:08] LABS: ALT 25 U/L (16-63); AST 24 U/L (15-37); Alkaline Phosphatase 137 U/L (46-116); Anion Gap 6.8 mmol/L (3-11); BUN 25 mg/dL (7-18); Bilirubin, Total 0.3 mg/dL (0.2-1.0); CO2 28.2 mmol/L (21.0-32.0); CREATININE 1.4 mg/dL (0.70-1.30); Calcium 8.7 mg/dL (8.5-10.1); Chloride 110 mmol/L (98-107); Estimated GFR 55.43 (mL/min/1.73m2); Glucose 115 mg/dL (74-106); Magnesium 1.8 mg/dL; Potassium 3.8 mmol/L (3.5-5.1); Sodium 145 mmol/L (136-145); Total Protein 6.9 g/dL (6.4-8.2)
[2024-07-03] MEDS: Normal Saline Flush 10 ML SYR IVP (10:10)
[2024-07-03 10:28] LABS: CA 19-9 3916 U/mL (<35)
== END 2024-07-22 23:59 | disposition home or self-care (01) ==
LOC: INF 00:53
PROVIDERS: PCP Internal Medicine; Visit Provider Internal Medicine Hematology & Oncology
DX: C24.1 Malignant neoplasm of ampulla of Vater (principal); Z45.2 Encounter for adjustment and management of vascular access device
CPT/HCPCS: 36591; 80053; 96523; 83735; 85025; 86301

== ENCOUNTER 2024-08-26 00:56 | Outpatient (CLI) | payer MEDICARE, SELFPAY ==
--- NOTE | 2024-08-26 | DI.CT_ITS ---
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 Lung Computer Aided Detection (CAD) was utilized. CONTRAST MATERIAL: Intravenous: Omnipaque 350 contrast volume:100 mL Oral: Yes COMPARISON: CT CT CHEST/ABD/PEL W from 04/23/[address] CHEST/ABD/PEL W from 07/03/2024 FINDINGS: CHEST: Tracheobronchial tree: Patent where visualized. No evidence of bronchiectasis. Pulmonary parenchyma: There is a calcified granuloma again seen in the left lower lobe. There is a n ew 4 mm nodule in the left lower lobe (series 10, image 95). There is a peripheral nodule in the lef t upper lobe. The triangular opacity in the right middle lobe is stable. No new infiltrates are see n. Visualized thyroid gland: Unremarkable. Mediastinum and Ilana: No dominant adenopathy or fluid collection. The esophagus is unremarkable. Pleura: No effusion or pneumothorax. Heart: The heart is not dilated. Coronary artery calcification is present. No pericardial effusion. Pulmonary arteries: No pulmonary emboli are identified. Aorta: Thoracic aorta non-dilated. There is no evidence of dissection. Atherosclerotic calcification is present. Lymph nodes: Within normal limits. Tubes, Catheters, and Lines: There is a right-sided port in place. Soft tissues: Unremarkable. Bones:Within normal limits for the patient's age. No aggressive osseous lesions are seen. ABDOMEN: Liver: Normal density. There hypodensity seen in the liver consistent with metastatic disease. The l argest lesion is seen in the right lobe of the liver and measures 3.1 x 2.8 cm. This compares to 2.7 x 2.1 cm on the prior examination dated 07/03/2024. There is also been an increase in size and numbe r of the lesions compared to the prior examination. Portal, Superior Mesenteric, and Splenic Veins: Unremarkable. Gallbladder and Biliary Tract: Status post cholecystectomy. No significant biliary ductal dilatation . There is mild pneumobilia. Pancreas: There is a stent again seen in the pancreas. There again seen postsurgical changes related to the pancreatic neoplasm. The visualized body and tail of the pancreas are unchanged and unremark able. Spleen: Normal. Adrenals: No masses seen. Kidneys: Normal size, contour and axis. No radiodense stones or obstructive uropathy. There is a simp le cyst on the right kidney. No follow-up is recommended. Abdominal Aorta: Abdominal portion non-dilated. Atherosclerotic calcification is present. Bowel: There is diverticulosis of the colon without evidence of acute diverticulitis. There is no ev idence of bowel obstruction or bowel wall thickening. There is been resection of the 3rd and 4th por tions of the duodenum with a gastroenteric anastomosis. The appendix appears have been removed. The re are surgical clips in the base of the cecum. Peritoneal Cavity: There are mildly prominent lymph nodes seen in the mesentery. No free air. Lymph Nodes: Mildly prominent lymph nodes are seen in the mesentery. Bones: Within normal limits for the patient's age. No aggressive osseous lesions are present. There is L5 spondylolysis and grade 1 spondylolisthesis of L5 on S1. Soft Tissues: There is soft tissue thickening in the midline supraumbilical region measuring 4.6 harvey sverse by 2.8 AP by 10 cm craniocaudad. This has developed since the prior examination. There is qu estion of infiltration/involvement of underlying adjacent small bowel. PELVIS: Bladder: The urinary bladder is incompletely distended but grossly unremarkable. Reproductive Organs: The prostate gland appears mildly enlarged. Lymph Nodes: Within normal limits. Bones: Within normal limits. IMPRESSION: 1. Increase in number and size of the hepatic metastases since 07/03/2024. 2. Increased thickening of the anterior abdominal wall in the supraumbilical region. Differential co nsiderations include infection/inflammation. There does appear to be of decreased attenuation and fi nding such as an abscess, seroma or hematoma should be considered. Metastatic disease should also be considered. 3. Two new noncalcified pulmonary nodules are seen. 4. Stable right middle lobe opacity. RADIATION DOSE DELIVERED: 781.13mGy.cm Total DLP DATA REPOSITORY: All CT scans at this facility are submitted to the National Radiology Data Registry (NRDR) Dose Index Registry (DIR) with the [employer] (ACR). RADIATION OPTIMIZATION: All CT scans at this facility use at least one of these dose optimization te chniques: automated exposure control; mA and/or kV adjustment per patient size (includes targeted exa ms where dose is matched to clinical indication); or iterative reconstruction.
[2024-08-26] MEDS: Barium Sulfate 2% W/V-Berry Smoothie 450 ML BTL PO ×2 (08:46→08:47)
[2024-08-26] MEDS: Omnipaque 350 MG/ML 100 ML BTL IJ (10:26)
== END 2024-08-26 01:16 ==
LOC: DI 00:56
PROVIDERS: PCP Internal Medicine; Visit Provider Internal Medicine Hematology & Oncology
DX: C24.1 Malignant neoplasm of ampulla of Vater (principal); R91.8 Other nonspecific abnormal finding of lung field
CPT/HCPCS: 74177; 71260; J3490

== ENCOUNTER 2024-09-03 01:36 | Outpatient (RCR) | payer MEDICARE, SELFPAY ==
[2024-08-26] MEDS: Normal Saline Flush 10 ML SYR IVP (08:24)
== END 2024-09-21 23:59 | disposition home or self-care (01) ==
LOC: INF 01:36
PROVIDERS: PCP Internal Medicine; Visit Provider Internal Medicine Hematology & Oncology
DX: C24.1 Malignant neoplasm of ampulla of Vater (principal)
CPT/HCPCS: 96523

== ENCOUNTER 2024-11-16 03:48 | Outpatient (RCR) | payer MEDICARE, SELFPAY ==
[2024-11-16] MEDS: Normal Saline Flush 10 ML SYR IVP (11:49)
[2024-11-16 12:10] LABS: Abs Immature Grans 0.01 10^3/uL (0.0-0.06); HCT 24.3 % (40.0-50.0); HGB 8.3 g/dL (13.5-17.5); Immature Grans % 0.2 %; MCH 35.8 pg (27.0-33.0); MCHC 34.2 % (32.0-36.0); MCV 105 fL (80-95); MPV 11.1 fL (8.0-11.0); Platelet Count 117 10^3/uL (130-400); RBC 2.32 10^6/uL (4.36-5.78); RDW 15.1 % (11.8-14.1); RDW-SD 56.9 fL; WBC 5.37 10^3/uL (4.4-10.8)
[2024-11-16 12:35] LABS: ALT 26 U/L (16-63); AST 27 U/L (15-37); Albumin 3.1 g/dL (3.4-5.0); Alkaline Phosphatase 123 U/L (46-116); Anion Gap 7.8 mmol/L (3-11); BUN 27 mg/dL (7-18); Bilirubin, Total 0.8 mg/dL (0.2-1.0); CO2 27.2 mmol/L (21.0-32.0); Calcium 8.7 mg/dL (8.5-10.1); Chloride 107 mmol/L (98-107); Estimated GFR 66.70 (mL/min/1.73m2); Glucose 100 mg/dL (74-106); Magnesium 1.8 mg/dL (1.8-2.4); Potassium 4.2 mmol/L (3.5-5.1); Sodium 142 mmol/L (136-145); Total Protein 7.1 g/dL (6.4-8.2)
[2024-11-18 12:56] LABS: CA 19-9 4476 U/mL (<35)
== END 2024-11-22 23:59 | disposition home or self-care (01) ==
LOC: INF 03:48
PROVIDERS: PCP Internal Medicine; Visit Provider Internal Medicine Hematology & Oncology
DX: C24.1 Malignant neoplasm of ampulla of Vater (principal)
CPT/HCPCS: 36591; 80053; 83735; 85025; 86301

== ENCOUNTER 2024-11-16 08:50 | Outpatient (CLI) | payer MEDICARE, SELFPAY ==
--- NOTE | 2024-11-16 | DI.CT_ITS ---
Exam(s) CT CHEST/ABD/PEL W EXAM: CT CHEST/ABD/PEL W CLINICAL HISTORY: Ampullary carcinoma, C24.1, on chemotherapy, restaging. TECHNIQUE: Imaging Protocol: Axial computed tomography images with coronal and sagittal reformatted images were created and reviewed CONTRAST MATERIAL: Intravenous: Omnipaque 350 Contrast volume:98 mL Oral: Yes. Oral contrast was also administered for bowel opacification. COMPARISON: CT CT CHEST/ABD/PEL W from 04/23/[address] CHEST/ABD/PEL W from 07/03/[address] CHEST/ABD/PEL W from 08/26/2024 FINDINGS: CHEST: LUNGS: There are no intraluminal filling defects in the pulmonary arterial tree to suggest acute pulmonary emboli in this patient who has a Port-A-Cath in place.. There are benign-appearing increased markings in the lateral aspect of the right upper lobe at its junction with the right middle lobe. There are no metastatic appearing lung nodules. Tiny calcified granulomas noted in the left lower lobe. There are no significant focal findings in trachea and mainstem bronchi. No bronchiectasis. No pleural effusions. MEDIASTINUM: No significant hilar nor mediastinal adenopathy. Partially included thyroid gland appears unremarkable. CARDIAC: Heart size is normal. There is no pericardial effusion.No evidence of thoracic aortic aneurysm nor dissection. OSSEOUS: No significant osseous lesions.No fractures. Hardware in the partially visualized lower cervical spine noted.. There are bilateral pars defects at L5 level and there is 1 cm anterolisthesis L5 upon S1 as well as advanced disc space narrowing at L5-S1 level. Also disc space narrowing at multiple other levels in the lumbosacral spine. ABDOMEN: There is no ascites. LIVER: The appearance of the liver is stable. Previously described metastatic lesions in the right lobe of the liver appears stable. There do not appear to be new additional metastatic lesions in the liver. There are no dilated intrahepatic ducts. GALLBLADDER/BILIARY: Gallbladder is again noted be surgically absent. CBD is not dilated. PANCREAS: There is again evidence of resection of the pancreatic head and there is a stent again noted in the pancreatic duct which extends from the mid pancreatic body level into the left side of the lumen of the nondilated CBD, similar to previous the pancreatic duct in the body and tail is not dilated. There is again noted a pancreatic-like density the in the pre aortic mesentery just lateral to the superior mesenteric artery which is again noted to contain a single calcification and which measures 3 cm wide by 2.3 cm AP by 1.7 cm craniocaudal.. This was present on the prior scan as well as the 07/04/2019 CT scan. However, it appears to have increased in size when compared to CT scan of 04/23/2024. Suspect that this may be neoplastic tissue SPLEEN: Spleen is not enlarged. There are no intrasplenic lesions. Splenic and portal veins are patent. ADRENALS: There are no significant adrenal masses. KIDNEYS: Left kidney unremarkable. Moderate size cyst in the lateral cortex of the right kidney is again noted, this benign cysts measuring 5 cm and not requiring further imaging workup. There are no solid masses in the kidneys and no hydronephrosis. No calculi.. ABDOMINAL AORTA: The abdominal aorta is calcified but not enlarged. Iliac arteries are also calcified but not enlarged. LYMPH NODES: No other retroperitoneal masses nor other para-aortic adenopathy. There is no adenopathy around the aortic bifurcation nor along the iliac chains and there is no inguinal adenopathy. ABDOMINAL WALL: The previously described midline supraumbilical anterior abdominal wall mass appears slightly decreased in size it presently measures approximately 4.8 cm wide by 2.5 cm AP by 9 cm craniocaudal. GI: The oral contrast has reached the rectum at time of image acquisition. There has been distal gastrectomy. [place] limb diameter is upper normal. No evidence of more distal small bowel obstruction. The appendix is surgically absent no ascites. PELVIS: LYMPH NODES: There is no intrapelvic nor inguinal adenopathy. GI: Appendix surgically absent.There is sigmoid diverticuli but no evidence of obvious acute diverticulitis. URINARY BLADDER: Relatively uniform thickening of the urinary bladder which may be due to under distension. REPRODUCTIVE: Prostate size normal. Seminal vesicles unremarkable. No obturator adenopathy. OSSEOUS: No significant osseous lesions. No fractures. 1 cm anterolisthesis L5 upon S1 due to bilateral pars defects at L5 level. IMPRESSION: 1. Relatively stable appearance compared to CT scan 08/26/2024. No new significant lung nodules, infiltrates, nor pleural effusions 2. Size and number of right hepatic lobe metastases appears stable. No obvious new lesions in the liver. 3. Again noted is resection of the pancreatic head and with an intrapancreatic duct stent extending from the pancreatic duct into the nondilated CBD. No abnormal collections at this level. No evidence of obvious pancreatitis. Again noted is a pre aortic half slightly left of center anterior to the pre aortic left renal vein and just lateral to the superior mesenteric artery measuring 3 x 2.3 x 1.7 cm. This may be neoplastic. It contains a single calcification therein. 4. The previously described. Anterior abdominal wall midline supraumbilical mass has slightly decreased in size Other findings as above. RADIATION DOSE DELIVERED: 923.89mGy.cm Total DLP DATA REPOSITORY: All CT scans at this facility are submitted to the National Radiology Data Registry (NRDR) Dose Index Registry (DIR) with the [employer] (ACR). RADIATION OPTIMIZATION: All CT scans at this facility use at least one of these dose optimization techniques: automated exposure control; mA and/or kV adjustment per patient size (includes targeted exams where dose is matched to clinical indication); or iterative reconstruction.
[2024-11-16] MEDS: Barium Sulfate 2% W/V-Berry Smoothie 450 ML BTL PO ×2 (11:55→11:56)
[2024-11-16] MEDS: Normal Saline - Diluent 50 ML VIAL IJ (14:12)
[2024-11-16] MEDS: Normal Saline Flush 10 ML SYR IVP (14:12)
[2024-11-16] MEDS: Omnipaque 350 MG/ML 500 ML BTL-Imaging package IJ (14:13)
== END 2024-11-16 09:10 ==
LOC: DI 08:50
PROVIDERS: PCP Internal Medicine; Visit Provider Internal Medicine Hematology & Oncology
DX: C24.1 Malignant neoplasm of ampulla of Vater (principal)
CPT/HCPCS: 74177; 71260